=== PATIENT | male | born 1990 | race Caucasian/White ===

== ENCOUNTER 2016-08-02 18:14 | Emergency (ER) | payer OTHER ==
[~2016-08-02] VITALS: Ht 180.3 cm; Wt 91.5 kg
[~2016-08-02 18:14] MED LIST: CLIN-73 PO; IBUP-1542 PO
[2016-08-02 18:35] VITALS: Ht 180.3 cm; Wt 91.5 kg
[2016-08-02] MEDS ORDERED: PIPER-TAZO 3.375 GM IV (PMX) 100 ML IVPB STA (19:37)
[2016-08-02] MEDS ORDERED: VANCOMYCIN 1 GM (PMX) 250 ML IVPB SCH (20:00)
--- NOTE | 2016-08-02 20:43 | ERA ---
ER Documentation Chief Complaint Date/Time DATE: 08/02/16 TIME: 20:39 Chief Complaint DORINDA FEET SWELLING X 2 DAYS W/ GEN BODY RASHES HPI This is a 26-year-old male who was recently released from long term a few days ago. He says that while in long term over the past 3 4 days he has developed some left upper extremity multiple skin wounds with central areas of scabs and weeping. Is also complaining of both of his legs are red and very swollen. His feet are red ankles are red distal tib fibs are red. He does not know if he has had a fever. The father pulled me aside and told me that the patient has a history of IV drug use but denies using any drugs. Patient denies any cough chest pain shortness of breath or any medical history ROS All systems reviewed and are negative except as per history of present illness. Medications Home Meds Active Scripts Clindamycin Hcl* (Clindamycin Hcl*) 300 Mg Capsule, 300 MG PO TID for 10 Days, CAP Prov:BRIAN WHITE PA-C 03/03/16 Ibuprofen* (Motrin*) 600 Mg Tab, 600 MG PO Q6, #30 TAB Prov:BRIAN WHITE PA-C 03/03/16 Allergies Allergies: Coded Allergies: No Known Allergy (Unverified , 03/02/16) PMhx/Soc Medical and Surgical Hx: pt denies Medical Hx, pt denies Surgical Hx Hx Alcohol Use: No Hx Substance Use: Yes (IV DRUG USER) Hx Tobacco Use: Yes Smoking Status: Current every day smoker FmHx Family History: No coronary disease Physical Exam Vitals Vital Signs Date Time Temp Pulse Resp B/P Pulse Ox O2 Delivery O2 Flow Rate FiO2 08/02/16 18:35 99.0 130 20 132/73 100 Physical Exam Const: Well-developed, well-nourished Head: Atraumatic, normocephalic Eyes: Normal Conjunctiva, PERRLA, EOMI, normal sclera, no nystagmus ENT: Normal External Ears, Nose and Mouth, moist mucus membranes. Neck: Full range of motion. No meningismus, no lymphadenopathy. Resp: Clear to auscultation bilaterally, no wheezing, rhonchi, rales Cardio: Regular rate and rhythm, no murmurs, S1 S2 present Abd: Soft, non tender x 4, non distended. Normal bowel sounds, no guarding or rebound, no pulsitile abdominal masses or bruits Skin: No petechiae or rashes, no ecchymosis , no maculopapular rash, left upper extremity has multiple subcutaneous indurated areas with central areas of scab along the left dorsal hand and forearm. Does resemble skin popping, Back: No midline or flank tenderness Ext: No cyanosis, or edema, FROM x 4, normal inspection, neurovascularly intact x 4 bilateral lower extremities with +4 edema from the mid pretty down with erythema to the entire feet with some skin breakdown between the toes there is warmth to the feet and ankles and shins Neur: Awake and alert, STR 5/5 x 4, sensation intact x 4, no focal findings, cerebellum intact Psych: Normal Mood and Affect Results 24 hrs Current Medications Medications (Trade) Dose Ordered Sig/Sandi Route PRN Reason Start Time Stop Time Status Last Admin Dose Admin Piperacillin Sod/ Tazobactam Sod 100 ml @ 200 mls/hr ONCE STAT IVPB 08/02/16 19:37 08/02/16 20:06 DC Vancomycin HCl (Vancocin) 250 ml @ 125 mls/hr ONCE IVPB 08/02/16 20:00 08/02/16 21:59 Procedures/MDM Blood cultures and blood work was drawn. Intravenous Zosyn and vancomycin was given. Patient may have IV drug use over the past few days and is developed some skin popping abscesses in his arm Both legs are severely cellulitic and swollen. Needs to be admitted for intravenous antibiotics and leg elevation We will admit to the hospital and/or transfer if his insurance warrants it Departure Diagnosis: Primary Impression: Bilateral lower leg cellulitis Additional Impression: Abscess of left upper arm and forearm Condition: Stable STELLA MELGAR DO Aug 02, 2016 20:43
[2016-08-02 21:10] LABS: ADD SCAN DIFF NO
[2016-08-02 21:14] LABS: ABNORMAL IP MESSAGE 1; HEMATOCRIT 35.4 % (42.0-52.0); HEMOGLOBIN 11.9 g/dl (14.0-18.0); MEAN CORPUSCULAR HGB CONC 33.6 g/dl (32.0-37.0); MEAN CORPUSCULAR VOLUME 77.3 fl (82.0-101.0); MEAN PLATELET VOLUME 10.3 fl (7.4-10.4); PLATELET COUNT 284 10^3/UL (140-415); RED BLOOD COUNT 4.58 10^6/ul (4.70-6.10); RED CELL DISTRIBUTION WIDTH 13.7 % (11.5-14.5); WHITE BLOOD COUNT 21.3 10^3/ul (4.8-10.8)
[2016-08-02 21:36] LABS: ALBUMIN 3.9 g/dl (3.3-4.9); ALBUMIN/GLOBULIN RATIO 0.88; BILIRUBIN,INDIRECT 0.8 mg/dl (0-1.1); BILIRUBIN,TOTAL 0.8 mg/dl (0.2-1.3); CALCIUM 9.3 mg/dl (8.4-10.2); CREATININE 1.33 mg/dl (0.61-1.24); POTASSIUM 3.7 mmol/L (3.5-5.1); TOTAL PROTEIN 8.3 g/dl (6.1-8.1)
[2016-08-02 21:54] LABS: CANNABINOIDS Negative (NEGATIVE)
[2016-08-02] MEDS ORDERED: LABETALOL HCL 20MG INJ IV ONE ×2 (22:00→23:30)
[2016-08-02 22:08] LABS: BARBITURATES Negative (NEGATIVE); BENZODIAZEPINES Negative (NEGATIVE); COCAINE Negative (NEGATIVE); OPIATES Positive (NEGATIVE)
[2016-08-02] MEDS ORDERED: SOD CHLORIDE 0.9% 1,000 ML IV ONE (22:30)
[2016-08-02 22:45] LABS: BASOPHIL # 0.2 10^3/ul (0.0-0.1); LYMPHOCYTES # 2.1 10^3/ul (0.8-2.9); MONOCYTE # 2.1 10^3/ul (0.3-0.9); NEUTROPHIL # 16.6 10^3/ul (1.6-7.5)
[2016-08-03] MEDS ORDERED: SOD CHLORIDE 0.9% 1,000 ML IV ONE (01:00)
[2016-08-03 05:20] VITALS: BP 117/69; PULSE 110; RESP 18; TEMP 98.6
== END 2016-08-03 05:05 | disposition short-term general hospital (02) ==
LOC: FTE 18:14
DX: L03.116 Cellulitis of left lower limb (principal); L03.115 Cellulitis of right lower limb; L02.414 Cutaneous abscess of left upper limb; F17.210 Nicotine dependence, cigarettes, uncomplicated
CPT/HCPCS: 36415; 80053; 80307; 85025; 87040; 96374; 96375; 96376; J2543; J3370; J7030; Z7502; Z7610

== ENCOUNTER 2018-07-01 18:06 | Emergency (ER) | payer MEDICAID, OTHER ==
[~2018-07-01] VITALS: Ht 177.8 cm; Wt 96.4 kg
[~2018-07-01 18:06] MED LIST changes: -CLIN-73 PO; +CLIN300C10 PO
[2018-07-01 18:38] VITALS: Ht 177.8 cm; Wt 96.4 kg
[2018-07-01] MEDS ORDERED: CEFTRIAXONE 1 GM INJ IM ONE (23:00)
[2018-07-01] MEDS ORDERED: CEPH-443 PO (23:03)
[2018-07-01] MEDS ORDERED: SULF1TAB31 PO (23:04)
[2018-07-01 23:10] VITALS: BP 145/81; PULSE 103; RESP 20
--- NOTE | 2018-07-02 00:34 | ERD ---
ER Documentation Chief Complaint Chief Complaint L arm pain/swelling/abscess since yesterday HPI Patient is a 28-year-old male with a past medical history of IV drug use-heroin and meth, who presents to the ER for concerns of abscess to the right arm times 3 days. Patient states he did inject to the affected area. Patient states that area is red and tender. Patient is able to bend at his right elbow without any difficulty. Patient denies any fevers or chills. Patient is right-hand dominant. Admits to abscesses in the past. ROS All systems reviewed and are negative except as per history of present illness. Medications Home Meds Active Scripts Sulfamethoxazole/Trimethoprim* (Bactrim Ds* Tablet) 1 Each Tablet, 1 TAB PO BID, #14 TAB Prov:BRIANDA MASON PA-C 07/01/18 Cephalexin* (Keflex*) 500 Mg Capsule, 500 MG PO QID for 7 Days, CAP Prov:BRIANDA MASON PA-C 07/01/18 Clindamycin Hcl* (Clindamycin Hcl*) 300 Mg Capsule, 300 MG PO TID for 10 Days, CAP Prov:BRIAN WHITE PA-C 03/03/16 Ibuprofen* (Motrin*) 600 Mg Tab, 600 MG PO Q6, #30 TAB Prov:BRIAN WHITE PA-C 03/03/16 Allergies Allergies: Coded Allergies: No Known Allergy (Unverified , 03/02/16) PMhx/Soc Medical and Surgical Hx: pt denies Medical Hx, pt denies Surgical Hx Hx Alcohol Use: No Hx Substance Use: Yes (IV DRUG USER) Hx Tobacco Use: Yes Smoking Status: Current every day smoker FmHx Family History: No diabetes Physical Exam Vitals Vital Signs Date Temp Pulse Resp B/P (MAP) Pulse Ox O2 O2 Flow FiO2 Time Delivery Rate 07/01/18 99.7 103 20 145/81 100 Room Air 23:10 (102) 07/01/18 98.0 100 20 139/69 100 18:38 (92) Physical Exam GENERAL: Well-developed, well-nourished male. Appears in no acute distress. HEAD: Normocephalic, atraumatic. EYES: Pupils are equally reactive bilaterally. EOMs grossly intact. No conjunctival erythema. NECK: Supple. No meningismus. Normal range of motion of the neck. LUNG: Clear to auscultation bilaterally. No rhonchi, wheezing, rales or coarse breath sounds. HEART: Regular rate and rhythm. No murmurs, rubs or gallops. EXTREMITIES: Equal pulses bilaterally. No peripheral clubbing, cyanosis or edema. No unilateral leg swelling. NEUROLOGIC: Alert and oriented. Moving all four extremities without any difficulty. Normal speech. Steady gait. SKIN: Erythematous, swollen, indurated abscess measuring 4 x 4 inches noted in the right antecubital region. No fluctuance noted. Area is not circumferential. Area is warm to touch. No streaking noted. Patient is able to flex and extend at the elbow without any difficulty. Patient is able to pronate and supinate without any difficulty. No palpable foreign bodies. Results 24 hrs Current Medications Medications Dose Sig/Sandi Start Time Status Last (Trade) Ordered Route PRN Stop Time Admin Dose Reason Admin Ceftriaxone 1 gm ONCE ONCE 07/01/18 DC 07/01/18 Sodium IM 23:00 22:59 (Rocephin) 07/01/18 23:01 Procedures/MDM MEDICAL DECISION MAKING: This is a 28-year-old male with a history of IV drug use who presents the ER for concerns of an abscess in his right antecubital region times 3 days. Patient does report injecting at the affected area. Patient denies any fevers or chills. Vital signs were reviewed. Patient was afebrile. On exam, patient was noted to have abscess to right antecubital region. Patient was able to bend at his elbow without any difficulty. No streaking was noted. No fluctuance was noted thus incision and drainage was not initiated. Case was discussed with supervising physician Dr. Sousa who also spoke with and examined the patient. He advised me to give patient Rocephin 1 g here in the ER. Patient will be advised to return tomorrow for recheck. Abscess is marked and dated. Patient given strict return precautions advised to return to the ER for any new or worsening redness, swelling, pain fevers or chills. At this time, the patient's presentation is most consistent with abscess secondary to IV drug use. Low susp icion for septic joint flexor tenosynovitis or sepsis. Patient was nontoxic, [id number] prior to discharge. PRESCRIPTIONS: Bactrim, Keflex DISCHARGE: At this time, the patient is stable for discharge and outpatient management. Wound recheck advised in 1 day. I have instructed the patient to promptly return to the ER for any new or worsening symptoms including increasing pain, fever, warmth, redness or swelling. The patient and/or family expressed understanding of and agreement with this plan. All questions were answered. Home care instructions were provided. Disclaimer: Inadvertent spelling and grammatical errors are likely due to EHR/dictation software use and do not reflect on the overall quality of patient care. Also, please note that the electronic time recorded on this note does not necessarily reflect the actual time of the patient encounter. Departure Diagnosis: Primary Impression: Abscess Additional Impression: IV drug user Condition: Fair Patient Instructions: Abscess, Antiobiotic Treatment Only Referrals: [facility] YOU HAVE RECEIVED A MEDICAL SCREENING EXAM AND THE RESULTS INDICATE THAT YOU DO NOT HAVE A CONDITION THAT REQUIRES URGENT TREATMENT IN THE EMERGENCY DEPARTMENT. FURTHER EVALUATION AND TREATMENT OF YOUR CONDITION CAN WAIT UNTIL YOU ARE SEEN IN YOUR DOCTORS OFFICE WITHIN THE NEXT 1-2 DAYS. IT IS YOUR RESPONSIBILITY TO MAKE AN APPOINTMENT FOR FOLOW-UP CARE. IF YOU HAVE A PRIMARY DOCTOR --you should call your primary doctor and schedule an appointment IF YOU DO NOT HAVE A PRIMARY DOCTOR YOU CAN CALL OUR PHYSICIAN REFERRAL HOTLINE AT IF YOU CAN NOT AFFORD TO SEE A PHYSICIAN YOU CAN CHOSE FROM THE FOLLOWING [facility] [address] [facility]. [facility] [address] [facility]. [facility] [address] [facility] [facility] [address] [facility]. [facility] [address] [facility]. [facility]. [address] [facility] YOU HAVE RECEIVED A MEDICAL SCREENING EXAM AND THE RESULTS INDICATE THAT YOU DO NOT HAVE A CONDITION THAT REQUIRES URGENT TREATMENT IN THE EMERGENCY DEPARTMENT. FURTHER EVALUATION AND TREATMENT OF YOUR CONDITION CAN WAIT UNTIL YOU ARE SEEN IN YOUR DOCTORS OFFICE WITHIN THE NEXT 1-2 DAYS. IT IS YOUR RESPONSIBILITY TO MAKE AN APPOINTMENT FOR FOLOW-UP CARE. IF YOU HAVE A PRIMARY DOCTOR --you should call your primary doctor and schedule and appointment IF YOU DO NOT HAVE A PRIMARY DOCTOR YOU CAN CALL OUR PHYSICIAN REFERRAL HOTLINE AT . IF YOU CAN NOT AFFORD TO SEE A PHYSICIAN YOU CAN CHOSE FROM THE FOLLOWING [facility] INSTITUTIONS: [facility] [address] [place] [address] [facility] [address] [place] [address] [facility] [address] [place] [address] Additional Instructions: Return tomorrow for recheck of your abscess. If you develop fevers return immediately. If there is any worsening redness, swelling, pain return immediately. Call your primary care doctor TOMORROW for an appointment during the next 1-2 days.See the doctor sooner or return here if your condition worsens before your appointment time. BRIANDA MASON PA-C Jul 02, 2018 00:34
== END 2018-07-01 23:13 | disposition home or self-care (01) ==
LOC: FTE 18:06
DX: L02.413 Cutaneous abscess of right upper limb (principal); F17.210 Nicotine dependence, cigarettes, uncomplicated; F11.90 Opioid use, unspecified, uncomplicated; F15.90 Other stimulant use, unspecified, uncomplicated
CPT/HCPCS: 96372; J0696